=== PATIENT | male | born 1960 | race Caucasian/White ===

== ENCOUNTER 2017-04-07 22:59 | Emergency (ER) | payer SELFPAY ==
[2017-04-07 23:07] VITALS: BP 123/88; PULSE 72; RESP 20; TEMP 98.7; O2SAT 99
--- NOTE | 2017-04-07 23:34 | PD ---
HPI Chief Complaint: OD/ Ingestion Time Seen by Provider: 23:13 Travel History International Travel<30 days: No Contact w/Intl Traveler<30days: No Traveled to known affect area: No History of Present Illness HPI pt was at a local gas station, he says he knows the person who worked there who offered him the remains of a bag of heroin. he said he went home to do it so he could go to sleep but apparently stopped breathing family called paramedics and they gave him Narcan 0.4 mg which made him wake up . he arrives in the ER wide-awake reporting feeling embarrassed and swearing he is never going to do heroin again denies any trauma patient has a deformity to his nose most likely from a prior fracture and he is right eye is slightly drooping [facility] Past Medical History Blood Disorders: No COPD: Yes Diminished Hearing: No Neurologic: Yes (HX SA HEMORRHAGE) Tetanus Vaccination: Unknown Past Surgical History Neurologic Surgery: Yes (METAL PLATE FROM PREVIOUS TBI) Social History Alcohol Use: Yes Tobacco Use: Yes Substance Use: Yes (METH, HEROIN) Allergies-Medications (Allergen,Severity, Reaction): Coded Allergies: Penicillins (Verified Allergy, Unknown, 04/07/17) Reported Meds & Prescriptions Reported Meds & Active Scripts Active No Active Prescriptions or Reported Medications Review of Systems Except as stated in HPI: all other systems reviewed are Neg Physical Exam Narrative GENERAL: Patient has a redness to his right eye with the lower lid droop and he has a deformity to his nose however. Mental status He is wide awake alert oriented 3 and able to recount entire story to me clearly SKIN: Warm and dry. HEAD: Atraumatic. Normocephalic. EYES: Pupils equal and round. No scleral icterus. No injection or drainage. ENT: No nasal bleeding patient has a deformity to his nasal septum old fracture most likely. Mucous membranes pink and moist. NECK: Trachea midline. No JVD. CARDIOVASCULAR: Regular rate and rhythm. RESPIRATORY: No accessory muscle use. Clear to auscultation. Breath sounds equal bilaterally. GASTROINTESTINAL: Abdomen soft, non-tender, nondistended. Hepatic and splenic margins not palpable. MUSCULOSKELETAL: Extremities without clubbing, cyanosis, or edema. No obvious deformities. NEUROLOGICAL: Awake and alert. No obvious cranial nerve deficits. Motor grossly within normal limits. Five out of 5 muscle strength in the arms and legs. Normal speech. PSYCHIATRIC: Appropriate mood and affect; insight and judgment normal. Data Data Last Documented VS Vital Signs Date Time Temp Pulse Resp B/P (MAP) Pulse Ox O2 Delivery O2 Flow Rate FiO2 04/08/17 01:00 72 20 120/76 (91) 99 Room Air 04/07/17 23:07 98.7 MDM Medical Decision Making Medical Screen Exam Complete: Yes Emergency Medical Condition: Yes Differential Diagnosis narcotic OD vs sedative OD Narrative Course observed for 1 hour and discharged with Narcan Diagnosis Primary Impression: Overdose of heroin Qualified Codes: T40.1X4A - Poisoning by heroin, undetermined, initial encounter Patient Instructions: General Instructions, Opioid Overdose (ED) Scripts No Active Prescriptions or Reported Meds Disposition: DISCHARGE HOME Condition: Renaldo Molina MD Apr 07, 2017 23:34
[2017-04-08 01:00] VITALS: BP 120/76; PULSE 72; RESP 20; O2SAT 99
== END 2017-04-08 02:15 | disposition home or self-care (01) ==
LOC: NEPC 22:59
DX: T40.1X1A Poisoning by heroin, accidental (unintentional), initial encounter (principal); J44.9 Chronic obstructive pulmonary disease, unspecified; Z72.0 Tobacco use; Z88.0 Allergy status to penicillin
CPT/HCPCS: 99283